=== PATIENT | male | born 1935 | race Caucasian/White ===

== ENCOUNTER 2019-03-10 17:56 | Inpatient (IN) | payer OTHER ==
[2019-03-10 18:32] LABS: ADD MAN DIFF? NO
[2019-03-10 18:35] LABS: BASOPHILS % 0.5 % (0.0-2.0); EOSINOPHILS % 0.2 % (0.0-7.0); HEMATOCRIT 39.6 % (42.0-52.0); HEMOGLOBIN 13.2 g/dl (14.0-18.0); LYMPHOCYTES # 0.6 10^3/ul (0.8-2.9); LYMPHOCYTES % 9.6 % (15.0-51.0); MEAN CORPUSCULAR HEMOGLOBIN 30.9 pg (29.0-33.0); MEAN CORPUSCULAR HGB CONC 33.3 g/dl (32.0-37.0); MEAN CORPUSCULAR VOLUME 92.7 fl (82.0-101.0); MEAN PLATELET VOLUME 9.1 fl (7.4-10.4); MONOCYTE # 0.3 10^3/ul (0.3-0.9); MONOCYTES % 4.2 % (0.0-11.0); NEUTROPHIL # 5.3 10^3/ul (1.6-7.5); NEUTROPHILS % 85.2 % (39.0-77.0); PLATELET COUNT 198 10^3/UL (140-415); RED BLOOD COUNT 4.27 10^6/ul (4.70-6.10); RED CELL DISTRIBUTION WIDTH 14.2 % (11.5-14.5)
[2019-03-10 18:35] LABS: WHITE BLOOD COUNT 6.3 10^3/ul (4.8-10.8)
[2019-03-10] MEDS: SOD CHLORIDE 0.9% 500 ML IV (18:47)
[2019-03-10 18:54] LABS: INR 0.91; PROTIME 12.4 Sec (11.9-14.9)
[2019-03-10 18:55] LABS: PARTIAL THROMBOPLASTIN TIME 22.9 Sec (23.0-35.0)
[2019-03-10 19:01] LABS: ANION GAP 13 (5-13); BLOOD UREA NITROGEN 9 mg/dl (7-20); CALCIUM 8.8 mg/dl (8.4-10.2); CARBON DIOXIDE 22 mmol/L (21-31); CHLORIDE 104 mmol/L (97-110); CREATININE 0.62 mg/dl (0.61-1.24); GLUCOSE 131 mg/dl (70-220); SODIUM 139 mmol/L (135-144)
[2019-03-10 19:13] LABS: TROPONIN-I < 0.012 ng/ml (0.000-0.120)
[2019-03-10] MEDS ORDERED: ACETAMINOPHEN 325 MG TAB PO (21:00)
[2019-03-10] MEDS ORDERED: ONDANSETRON 4 MG INJ IV ×2 (21:00→22:30)
[2019-03-10] MEDS: SOD CHLORIDE 0.9% 1,000 ML IV ×2 (22:21→22:29)
[2019-03-10] MEDS ORDERED: PHENYLephrine 20MG IN 250 ML 250 ML IV (22:30)
[2019-03-10] MEDS ORDERED: ALBUTEROL/IPRATROPIUM (NEB) 3 ML AMP NEB (22:30)
[2019-03-10 22:59] LABS: HEMOGLOBIN A1C 5.4 % (0-5.9)
[2019-03-11 05:44] LABS: ADD MAN DIFF? NO; BASOPHILS % 0.5 % (0.0-2.0); EOSINOPHILS % 0.7 % (0.0-7.0); HEMATOCRIT 38.9 % (42.0-52.0); LYMPHOCYTES # 0.7 10^3/ul (0.8-2.9); LYMPHOCYTES % 12.4 % (15.0-51.0); MEAN CORPUSCULAR HGB CONC 33.4 g/dl (32.0-37.0); MEAN CORPUSCULAR VOLUME 92.6 fl (82.0-101.0); MEAN PLATELET VOLUME 8.9 fl (7.4-10.4); MONOCYTE # 0.6 10^3/ul (0.3-0.9); MONOCYTES % 9.6 % (0.0-11.0); NEUTROPHIL # 4.5 10^3/ul (1.6-7.5); NEUTROPHILS % 76.6 % (39.0-77.0); PLATELET COUNT 209 10^3/UL (140-415); RED CELL DISTRIBUTION WIDTH 14.2 % (11.5-14.5)
[2019-03-11 05:44] LABS: WHITE BLOOD COUNT 5.8 10^3/ul (4.8-10.8)
[2019-03-11 06:08] LABS: ANION GAP 7 (5-13); BLOOD UREA NITROGEN 9 mg/dl (7-20); CALCIUM 8.3 mg/dl (8.4-10.2); CARBON DIOXIDE 27 mmol/L (21-31); CHLORIDE 106 mmol/L (97-110); CREATININE 0.59 mg/dl (0.61-1.24); GLUCOSE 103 mg/dl (70-220); POTASSIUM 4.3 mmol/L (3.5-5.1); SODIUM 140 mmol/L (135-144)
[2019-03-11] MEDS ORDERED: ATORVASTATIN 20 MG TAB PO (21:00)
[2019-03-11] MEDS ORDERED: TAMSULOSIN (SR) 0.4 MG CAP PO (21:00)
== END 2019-03-11 17:33 | disposition home health service (06) | DRG 66 ==
LOC: ICU 22:20 → E/R 17:56
PROVIDERS: Internal Medicine
DX: I62.02 Nontraumatic subacute subdural hemorrhage (principal); R13.10 Dysphagia, unspecified; Z85.89 Personal history of malignant neoplasm of other organs and systems; I95.89 Other hypotension; S09.90XA Unspecified injury of head, initial encounter; S01.111A Laceration without foreign body of right eyelid and periocular area, initial encounter; N40.0 Benign prostatic hyperplasia without lower urinary tract symptoms; Z91.81 History of falling
CPT/HCPCS: 36415; 70450; 71045; 72125; 80048; 83036; 84484; 85025; 85610; 85730; 87081; 93005; 97161; 99285-25